=== PATIENT | female | born 1965 | race Caucasian/White ===

== ENCOUNTER 2023-10-26 15:21 | Emergency (ER) | payer MEDICAID ==
[~2023-10-26] VITALS: Ht 167.6 cm; Wt 99.0 kg
[2023-10-26 15:27] VITALS: BP 155/90; RESP 20; TEMP 98.4; O2SAT 98
[2023-10-26 15:29] VITALS: PULSE 89
== END 2023-10-26 16:13 | disposition home or self-care (01) ==
LOC: ER 15:21
DX: S70.02XA Contusion of left hip, initial encounter (principal); S09.90XA Unspecified injury of head, initial encounter; W01.0XXA Fall on same level from slipping, tripping and stumbling without subsequent striking against object, initial encounter; Y93.89 Activity, other specified; Y92.89 Other specified places as the place of occurrence of the external cause; Y99.8 Other external cause status
CPT/HCPCS: 99281